=== PATIENT | female | born 1970 | race Two or more races ===

== ENCOUNTER 2019-01-25 14:53 | Emergency (ER) | payer OTHER ==
[~2019-01-25] VITALS: Ht 177.8 cm; Wt 96.2 kg
[2019-01-25 15:01] VITALS: BP_SYST 116
--- NOTE | 2019-01-25 15:11 | NUR ---
Dr Hinojosa at bedside examining patient
--- NOTE | 2019-01-25 15:11 | NUR ---
Patient to ER bed 04 to gown for evaluation. Side rails up.
--- NOTE | 2019-01-25 15:11 | NUR ---
Pt brought by self, A&Ox4, pt presents to ER with R upper arm pain/redness, afebrile,pt states she was sent from her PCP office for further evaluation , pt has been taking antibiotics since friday, cap refill <3, VS WNL, Pt ambulatory, respirations even and unlabored.
[2019-01-25] MEDS ORDERED: CLINDAMYCIN 600 MG in D5W 50 ML IV ONE (15:30)
[2019-01-25] MEDS ORDERED: NACL 0.9% 1,000 ML IV ONE (15:30)
[2019-01-25] MEDS ORDERED: ONDANSETRON 4 MG ODT TAB PO ONE (15:45)
--- NOTE | 2019-01-25 15:50 | NUR ---
PT came in due to right mid upper arm to mid lower arm pain. Redness, swelling and pitting +1 at the site near elbow. Pt has had pain since Friday of last week. Pt stated she got a tattoo 3 months ago and they shaved her arm. The hair has started to grow back causing in grown hairs to form and and caused a small pimple in the area which she states is where the pain started. MD made a small hole in upper forearm to drain fluid. Pt is A&Ox4, has Nausea, denies diarrhea and vomitting. Pain is 5/10. Will continue to monitor.
[2019-01-25] MEDS ORDERED: CLINDAMYCIN 600 mg/50mL D5W 50 ML IV ONE (16:02)
[2019-01-25 16:14] LABS: HEMATOCRIT 29.9 % (36-48); HEMOGLOBIN 9.1 g/dL (12.0-16.0); MEAN CORPUSCULAR HEMOGLOBIN 19 pg (27-31); MEAN CORPUSCULAR HGB CONC 30 % (32-36); MEAN CORPUSCULAR VOLUME 64 fL (79.0-98.0); PLATELET COUNT (AUTO) 327 K/uL (130-430); RED BLOOD CELL COUNT(AUTO) 4.68 MIL/uL (4.2-6.2); RED CELL DISTRIBUTION WIDTH 17.6 % (9.0-15.0); WHITE BLOOD COUNT (AUTO) 10.3 K/uL (4.8-10.8)
[2019-01-25 16:22] LABS: CALCIUM 9.8 mg/dL (8.4-11.0); CREATININE 1.14 mg/dL (0.55-1.30); POTASSIUM 3.1 mmol/L (3.5-5.1)
[2019-01-25 16:27] LABS: ALBUMIN 3.4 g/dL (3.4-4.8); TOTAL BILIRUBIN 0.3 mg/dL (0.0-1.0)
[2019-01-25 16:31] LABS: ATYPICAL LYMPHOCYTES % 0 % (0-0); BAND % (MANUAL) 0 % (0-6); BASOPHILS % (MANUAL) 0 % (0-2); EOSINOPHILS % (MANUAL) 3 % (0-7); LYMPHOCYTES % (MANUAL) 13 % (20-46); MONOCYTES % (MANUAL) 6 % (0-11)
--- NOTE | 2019-01-25 17:10 | NUR ---
Pt's IV fluids and antiobiotics are done being administered. Pt states her pain is now an 8/10. Dr. Hinojosa aware.
[2019-01-25] MEDS ORDERED: KETOROLAC TROMETHAMINE 30 MG VIAL IVP ONE (17:15)
[2019-01-25] MEDS ORDERED: POTASSIUM CHLORIDE 20 MEQ/PKT PACKET PO ONE (17:15)
--- NOTE | 2019-01-25 18:01 | NUR ---
Patient given written and verbal discharge instructions and verbalizes understanding. ER MD discussed with patient the results and treatment provided. Patient in stable condition. ID arm band removed. IV catheter removed intact and dressing applied, no active bleeding. Rx of Clindamycin and [place] given. Patient educated on pain management and to follow up with PMD. Pain Scale 5/10. Opportunity for questions provided and answered. Medication side effect fact sheet provided.
--- NOTE | 2019-01-25 18:01 | NUR ---
Note undone in EDM - 01/25/19 at 1812 by JESUSEDVS Patient given written and verbal discharge instructions and verbalizes understanding. ER MD discussed with patient the results and treatment provided. Patient in stable condition. ID arm band removed. IV catheter removed intact and dressing applied, no active bleeding. Rx of Clindamycin and [place] given. Patient educated on pain management and to follow up with PMD. Pain Scale []. Opportunity for questions provided and answered. Medication side effect fact sheet provided.
[2019-01-25 18:07] VITALS: BP_SYST 116
== END 2019-01-25 18:07 | disposition home or self-care (01) ==
LOC: SED 14:53
DX: L03.113 Cellulitis of right upper limb (principal); I10 Essential (primary) hypertension; Z88.6 Allergy status to analgesic agent
CPT/HCPCS: 36415; 80053; 81025; 83605; 85007; 85027; 87040; 96365; 96375; 99283; J1885; J3490; J7030; Q0162; J7060